=== PATIENT | male | born 1975 | race African-American/Black ===

== ENCOUNTER 2018-07-05 10:03 | Inpatient (IN) | payer MEDICAID ==
[~2018-07-05] VITALS: Ht 193 cm; Wt 104.3 kg
[2018-07-05] MEDS ORDERED: NITROGLYCERIN OINT 1GM/INCH UDPKT TD ONE (11:30)
[2018-07-05] MEDS ORDERED: CLONIDINE 0.1MG TABLET PO ONE (11:30)
[2018-07-05 11:51] LABS: BASOPHILS % 0.9 % (0.0-2.0); EOSINOPHILS % 1.9 % (0.0-5.0); HEMATOCRIT. 35.7 % (42.0-52.0); HEMOGLOBIN. 11.8 g/dL (14.0-18.0); LYMPHOCYTES % 22.2 % (20.0-50.0); MEAN CORPUSCULAR HEMOGLOBIN 29.1 pg (28.0-32.0); MEAN CORPUSCULAR VOLUME 88.3 fL (80.0-94.0); MEAN PLATELET VOLUME 8.7 fl (7.4-10.4); MONOCYTES % 10.7 % (2.0-8.0); NEUTROPHILS % 64.3 % (40.0-76.0); PLATELET 286 x1000/uL (130-400); RED BLOOD CELL COUNT 4.04 mill/uL (4.7-6.1); RED CELL DISTRIBUTION WIDTH 14.3 % (11.6-14.6)
[2018-07-05 11:59] LABS: INR 1.1; PROTHROMBIN TIME 11.3 sec (9.1-11.1)
[2018-07-05 12:00] LABS: CHLORIDE 99 mEq/L (98-107)
[2018-07-05] MEDS ORDERED: ASPIRIN 325MG TABLET PO ONE (13:00)
[2018-07-05 16:01] LABS: *AMPHETAMINES SCREEN URINE NEGATIVE (NEGATIVE); *BARBITURATES SCREEN URINE NEGATIVE (NEGATIVE); *BENZODIAZEPINES SCREEN URINE NEGATIVE (NEGATIVE); *COCAINE SCREEN URINE NEGATIVE (NEGATIVE); METHADONE URINE SCREEN NEGATIVE (NEGATIVE); OPIATES URINE SCREEN NEGATIVE (NEGATIVE); PHENCYCLIDINE URINE SCREEN NEGATIVE (NEGATIVE)
[2018-07-05 16:02] LABS: CANNABINOID URINE SCREEN PRESUMTIVE POSITIVE (NEGATIVE)
[2018-07-05 16:20] LABS: CLARITY URINE CLEAR (CLEAR); COLOR URINE YELLOW (YELLOW); KETONES URINE NEGATIVE (NEGATIVE); LEUKOCYTE ESTERASE URINE NEGATIVE (NEGATIVE); NITRITE URINE NEGATIVE (NEGATIVE); OCCULT BLOOD URINE NEGATIVE (NEGATIVE); PROTEIN URINE 2+ (NEGATIVE); SPECIFIC GRAVITY URINE 1.015 (1.005-1.030); UROBILINOGEN URINE 0.2 E.U./dL (0.2-1.0)
[2018-07-05] MEDS ORDERED: CARVEDILOL 3.125 MG TABLET PO NR (17:00)
[2018-07-05] MEDS ORDERED: FUROSEMIDE 40MG/4ML VIAL IVP NR (20:30)
[2018-07-05] MEDS: CLONIDINE 0.1MG TABLET PO PRN (20:52)
[2018-07-05] MEDS ORDERED: POTASSIUM CHLORIDE 20MEQ TABLET SR PO NR (21:11)
[2018-07-05] MEDS ORDERED: LOSARTAN POTASSIUM 50 MG TABLET PO SCH (22:00)
[2018-07-05 23:00] VITALS: BP 174/125
[2018-07-06] VITALS (9 sets, daily range): BP systolic 140–180; BP diastolic 86–117
[2018-07-06] MEDS: AMLODIPINE 5MG TABLET PO SCH ×2 (00:31→09:32)
[2018-07-06] MEDS: CARVEDILOL 3.125 MG TABLET PO SCH ×4 (00:32→22:24)
[2018-07-06] MEDS ORDERED: HYDR-4133 PO (01:20)
[2018-07-06] MEDS ORDERED: LISI2.5T47 PO (01:20)
[2018-07-06] MEDS ORDERED: AMLO2.5T45 PO (01:20)
[2018-07-06] MEDS: CLONIDINE 0.1MG TABLET PO PRN (05:34)
[2018-07-06 07:29] LABS: BASOPHILS % 0.7 % (0.0-2.0); HEMATOCRIT. 33.2 % (42.0-52.0); HEMOGLOBIN. 11.2 g/dL (14.0-18.0); LYMPHOCYTES % 21.1 % (20.0-50.0); MEAN CORPUSCULAR HEMOGLOBIN 29.6 pg (28.0-32.0); MEAN CORPUSCULAR VOLUME 87.6 fL (80.0-94.0); MEAN PLATELET VOLUME 9.1 fl (7.4-10.4); MONOCYTES % 10.7 % (2.0-8.0); NEUTROPHILS % 65.5 % (40.0-76.0); PLATELET 299 x1000/uL (130-400); RED BLOOD CELL COUNT 3.79 mill/uL (4.7-6.1); RED CELL DISTRIBUTION WIDTH 14.1 % (11.6-14.6)
[2018-07-06] MEDS: ENOXAPARIN 30MG/0.3ML SYR SUBCUT SCH ×2 (09:32→22:25)
[2018-07-06] MEDS ORDERED: LOSARTAN POTASSIUM 50 MG TABLET PO SCH ×2 (11:00)
[2018-07-06] MEDS: NIFEDIPINE XL 60MG TAB PO SCH (12:09)
[2018-07-06] MEDS: POTASSIUM CHLORIDE 20MEQ TABLET SR PO SCH (12:12)
[2018-07-06] MEDS ORDERED: MAGNESIUM 1 G PREMIX 100 ML IV SCH (12:30)
[2018-07-06] MEDS: CLONIDINE 0.1MG TABLET PO SCH ×2 (13:53→22:24)
[2018-07-06] MEDS: LOSARTAN POTASSIUM 50 MG TABLET PO SCH (22:24)
[2018-07-07] VITALS: BP 133/97
[2018-07-07 04:00] VITALS: BP 137/99
[2018-07-07] MEDS: CLONIDINE 0.1MG TABLET PO SCH ×2 (05:43→14:41)
[2018-07-07 06:05] LABS: BASOPHILS % 0.9 % (0.0-2.0); EOSINOPHILS % 2.9 % (0.0-5.0); HEMATOCRIT. 35.4 % (42.0-52.0); HEMOGLOBIN. 11.8 g/dL (14.0-18.0); LYMPHOCYTES % 29.6 % (20.0-50.0); MEAN CORPUSCULAR HEMOGLOBIN 29.2 pg (28.0-32.0); MEAN CORPUSCULAR VOLUME 87.6 fL (80.0-94.0); MEAN PLATELET VOLUME 8.8 fl (7.4-10.4); MONOCYTES % 11.9 % (2.0-8.0); NEUTROPHILS % 54.7 % (40.0-76.0); PLATELET 313 x1000/uL (130-400); RED BLOOD CELL COUNT 4.04 mill/uL (4.7-6.1); RED CELL DISTRIBUTION WIDTH 14.3 % (11.6-14.6)
[2018-07-07 08:00] VITALS: BP 132/96
[2018-07-07] MEDS: CARVEDILOL 3.125 MG TABLET PO SCH (09:39)
[2018-07-07] MEDS: LOSARTAN POTASSIUM 50 MG TABLET PO SCH (09:41)
[2018-07-07] MEDS: NIFEDIPINE XL 60MG TAB PO SCH (09:42)
[2018-07-07] MEDS: ENOXAPARIN 30MG/0.3ML SYR SUBCUT SCH (09:42)
[2018-07-07] MEDS: POTASSIUM CHLORIDE 20MEQ TABLET SR PO SCH (09:43)
[2018-07-07 12:00] VITALS: BP 132/97
[2018-07-07] MEDS ORDERED: COR3 PO ×2 (13:45→14:19)
[2018-07-07] MEDS ORDERED: LOSA50TA3 PO (13:45)
[2018-07-07] MEDS ORDERED: NIFE60TA64 PO ×2 (13:45→14:19)
[2018-07-07 14:05] VITALS: BP 132/97
[2018-07-07] MEDS ORDERED: LOSA50TA20 PO (14:19)
== END 2018-07-07 15:00 | disposition home or self-care (01) | DRG 199 ==
LOC: ER 12:54 → 7WST 13:06 → EDBEDREQ 13:10 → EDBEDREQTM 13:10 → ENRESERV 19:23
PROVIDERS: ADMIT Emergency Medicine; ATTEND Emergency Medicine
DX: I16.1 Hypertensive emergency (principal); N17.9 Acute kidney failure, unspecified; I24.9 Acute ischemic heart disease, unspecified; I43 Cardiomyopathy in diseases classified elsewhere; I13.0 Hypertensive heart and chronic kidney disease with heart failure and stage 1 through stage 4 chronic kidney disease, or unspecified chronic kidney disease; I50.9 Heart failure, unspecified; N18.9 Chronic kidney disease, unspecified; E87.6 Hypokalemia; D64.9 Anemia, unspecified; F12.90 Cannabis use, unspecified, uncomplicated; Z82.49 Family history of ischemic heart disease and other diseases of the circulatory system; Z86.73 Personal history of transient ischemic attack (TIA), and cerebral infarction without residual deficits; Z90.81 Acquired absence of spleen; Z91.14 Patient's other noncompliance with medication regimen
CPT/HCPCS: 36415; 70450; 71045; 80048; 80053; 80305; 81003; 83735; 83880; 84443; 84484; 85025; 85610; 93005; 93306; 96374; 99291; J1650; J1940; J3475